=== PATIENT | female | born 1965 | race Caucasian/White ===

== ENCOUNTER → 2023-05-19 12:51 | Outpatient (REF) | payer OTHER, SELFPAY | LOC: RCS 12:51 | PROVIDERS: ATTENDING PHYSICIAN Nurse Practitioner; FAMILY PHYSICIAN Nurse Practitioner Family | DX: R00.1 Bradycardia, unspecified (principal); I49.3 Ventricular premature depolarization | CPT/HCPCS: 93225; 93226 ==

== ENCOUNTER → 2023-06-10 10:11 | Outpatient (REF) | payer OTHER, SELFPAY | LOC: DHCBC MAIN 10:11 | PROVIDERS: ATTENDING PHYSICIAN Internal Medicine Cardiovascular Disease; FAMILY PHYSICIAN Nurse Practitioner Family | DX: I49.3 Ventricular premature depolarization (principal) | CPT/HCPCS: 93306 ==

== ENCOUNTER 2023-07-03 06:13 | Day surgery (SDC) | payer OTHER, SELFPAY ==
[2023-06-10 09:26] VITALS: BMI 39.2
[2023-06-10 10:00] LABS: % Basophils 0.9 % (0-2); % Eosinophils 4.7 % (0-6); % Immature Granulocytes 0.6 % (0-0.5); % Lymphocytes 18.5 % (20.5-51.1); % Monocytes 6.3 % (1.7-9.3); Absolute Basophils 0.1 10^3/uL (0-0.2); Absolute Eosinophils 0.3 10^3/uL (0-0.7); Absolute Lymphocytes 1.3 10^3/uL (1.2-3.4); Absolute Monocytes 0.4 10^3/uL (0.1-0.6); Absolute Neutrophils 4.8 10^3/uL (1.4-6.5); Hematocrit 40.2 % (37.0-47.0); Hemoglobin 12.9 g/dL (12.0-16.0); Mean Corp Hgb Conc. 32.1 g/dL (33.0-37.0); Mean Corpuscular Hgb 29.2 pg (27.0-31.0); Mean Platelet Volume 10.8 fL (7.4-10.4); Nucleated Red Blood Cells % 0 %; Platelet Count 244 10^3/uL (130-400); Red Blood Cell Count 4.42 10^6/uL (4.20-5.40); Red Cell Dist. Width 13.4 % (11.5-14.5)
[2023-06-10 10:12] LABS: ALT (SGPT) 36 U/L (0-35); AST (SGOT) 31 U/L (14-36); Albumin 4.1 g/dl (3.5-5.0); Alkaline Phosphatase 90 U/L (38-126); Blood Urea Nitrogen 15 mg/dl (7-17); Calcium 9.4 mg/dl (8.4-10.2); Carbon Dioxide 28 mmol/L (22-30); Chloride 103 mmol/L (98-107); Estimated Creatinine Clearance 107 ml/min; Glucose 126 mg/dl (70-99); Potassium 3.4 mmol/L (3.5-5.1); Sodium 140 mmol/L (135-145); Total Bilirubin 0.7 mg/dl (0.2-1.3); Total Protein 6.8 g/dl (6.3-8.2); eGFR > 60.00
[2023-07-03] VITALS (10 sets, daily range): BP systolic 101–141; BP diastolic 48–104; BMI 38.3
[2023-07-03 08:59] LABS: ACT-LR - POC 242 Seconds (116-155)
[2023-07-03 09:22] LABS: ACT-LR - POC 277 Seconds (116-155)
--- NOTE | 2023-07-03 10:58 | ITS.CL.ABL ---
[employer] - Ablation
Ablation
Procedure Report:
Procedure Report:
PVC / VT ablation:
Ms. Moore is a very pleasant 58 yr old woman with highly symptomatic with high burden of PVC (27%) presented today to the EP lab for PVC/VT ablation
Date of the Procedure:
07/03/2023
Indications:
High burden of PVCs
Pre-Operative Diagnosis:
Premature ventricular contractions
Post-Operative Diagnosis:
Premature ventricular contractions
Procedure Performed:
PVC / Ventricular tachycardia �LVOT ablation
Performing Physician:
Say Verduzco MD
Anesthesia:
See anesthesia records.
Detailed Description of the Procedure:
Written informed consent was obtained from the patient after a full explanation of the risks and benefits of the procedure including the risks of sedation and anesthesia. The patient was brought to the electrophysiology laboratory in stable
condition in fasting state. Continuous electrocardiographic and hemodynamic monitoring was initiated.
The initial rhythm was normal sinus rhythm with PVCs.
The procedure site was meticulously prepared with surgical scrub and allowed to dry with no pooling. Sterile draping was applied to cover the procedure site. The image intensifier was draped with sterile bag and positioned over the patient. After
infusion of local anesthetic, vascular access was obtained under ultrasound guidance and sheaths were placed over guide wire as detailed below.
Sheath and Catheter Placement:
The following catheters / sheaths were placed
Sheaths:
��������������� 8Fr long sheath in right femoral artery
��������������� 8Fr sheath in right femoral vein.
���������������
Catheters:
��������������� [employer] Thermocool STSF bidirectional
������������������������������� - at locations of HRA, RV, RVOT. Aorta, LVOT, LV
Anticoagulation:
An initial 7000 units of heparin was given after the IV access before placing catheters to the heart and heparin drip was started. An additional 5000 units were given before placing catheters in the arterial system.
The ACT was checked every 30 minutes to keep ACT above 300 throughout the case.
3D Electroanatomic Mapping:
Using the Thermocool STSF catheter was advanced through sheath into the right atrium. An electroanatomic map (EAM) of the right atrium was created using [employer] mapping system. The catheter was then advanced into the RV and the EAM of
the RV and RVOT was created. The clinical PVC was mapped in detail and the best location of the origin was obtained at the septal side of RVOT. �
Decision was made to proceed to the LVOT mapping.
PVC: Aorta Cusps and the LV cavity with retrograde approach:
The ablation catheter was advanced via the arterial puncture and the aorta, cusps were mapped. The orifice of the left main was identified and care was taken to avoid entry into the left main. �
Then the ablation was looped in the aorta and advanced into the LV cavity. The LV was mapped. The LVOT had the better signals and the LAT mapped showed that the aorta and the cusps are out. The origin of the PVCs were coming from the LV outflow
tract area next to the RVOT septum.
LV mapping:
The best EGMs from the LVOT were almost on time with the surface PVC EGMs. There were frequent PVCs noted. The best area of the earliest activation was at the LVOT septal area next to AMC. The AMC and the Aortic cusps were mapped in detail as well.
Ablation:
PVC # 2 Ablation in the LVOT ablation:
Ablation catheter (Thermocool STSF contact force ablation catheter) was introduced via the arterial sheath. The ACT remained above 300. The ablation catheter was placed in the LV. The LVOT area was ablated with 45watts with good force with Surpoint
index of 500.
The PVCs were suppressed.
Further ablation lesions were created on the area for additional consolidated lesions formation.
With observation the PVCs were noted again and the LVOT was mapped again was late now. The aortic cusp was mapped that were 15-20 msec early and the PVC was originating from the commissure of left and right aortic cusp.
The aortic cusp, right and left and the commissure area was ablated. The PVCs were suppressed completely.
Patient was observed for 25 minutes and no PVCs were noted and the decision was made to stop ablation and assess if further ablations are needed.
Procedure End:
Patient was recovered.
Following the completion of the EP study, catheters were removed. Protamine 40 mg was given at the end of the procedure and ACT was checked repeatedly.
The femoral artery was closed using Angioseal 8Fr.
The femoral sheath was removed and hemostasis achieved with Vascade and manual compression after acceptable ACT is achieved.
�
Estimated Blood loss:
10 cc
Specimens Removed:
None.
Implants / Devices:
None
Urine output:
None
Packs / Drains/ Tubes:
None
Instrument / Sponge Count Correct:
Yes
Complications of the Procedure:
None
Condition of Patient at Time of Transfer:
Hemodynamically stable state with no neurological or vascular compromise.
Summary:
PVC ablation aortic cusp and LVOT origin.
== END 2023-07-03 14:00 | disposition home or self-care (01) ==
LOC: CATH 06:13
PROVIDERS: ATTENDING PHYSICIAN Internal Medicine Cardiovascular Disease; FAMILY PHYSICIAN Nurse Practitioner Family; OTHER PHYSICIAN Internal Medicine Cardiovascular Disease
DX: I49.3 Ventricular premature depolarization (principal); I08.3 Combined rheumatic disorders of mitral, aortic and tricuspid valves
CPT/HCPCS: C1894; C1732; 36415; 76937; 80053; 85025; 85347; 93005; 93654; C1760